=== PATIENT | male | born 1975 | race Caucasian/White ===

== ENCOUNTER 2018-02-19 11:14 | Emergency (ER) | payer OTHER ==
[2018-02-19 11:41] VITALS: BP 138/91
--- NOTE | 2018-02-19 12:44 | ED Physician Documentation ---
PD HPI UPPER EXT INJURY - Stated complaint Stated Complaint: R HAND INJ - Chief complaint Chief Complaint: Trauma Ext - History obtained from History obtained from: Patient - History of Present Illness Location: Right, Hand (dorsum) Type of injury: Crush (hand caught between ladder cleat and building with laceration/gouge in back of hand. Has small area of avulsion that exposes the tendon. Good ROM and extension of the fingers. No numbness.) Where injury occurred: Work Timing - onset: Today Timing - details: Abrupt onset, Still present Worsened by: Palpating. No: Moving Associated symptoms: No: Weakness, Numbness Similar symptoms before: Has not had sx before Recently seen: Not recently seen Review of Systems Skin: reports: Laceration (s) Musculoskeletal: reports: Extremity pain Neurologic: denies: Focal weakness, Numbness PD PAST MEDICAL HISTORY - Past Medical History Past Medical History: Yes Respiratory: Asthma - Past Surgical History Past Surgical History: Yes - Present Medications Home Medications: Ambulatory Orders Medication Instructions Recorded Confirmed No Known Home Medications [No 02/19/18 02/19/18 Known Home Medications] - Allergies Allergies/Adverse Reactions: Allergies Allergy/AdvReac Type Severity Reaction Status Date / Time No Known Drug Allergies Allergy Verified 02/19/18 11:42 - Social History Does the pt smoke?: No Smoking Status: Never smoker Does the pt drink ETOH?: Yes ETOH Use: Beer Does the pt have substance abuse?: Yes Substance Use and Type: Prescription Pills - Immunizations Immunizations are current?: No Immunizations: TDAP >10years/unknown - POLST Patient has POLST: No PD ED PE NORMAL - Vitals Vital signs reviewed: Yes - General General: Alert and oriented X 3, No acute distress, Well developed/nourished - Derm Derm: Normal color, Warm and dry - Extremities Extremities: No deformity, No tenderness to palpate, Other (dorsum right hand with rounded area of avulsion skin about 1 cm rounded. Tendon exposed with minimal fray of it (less than 5% tendon lac). Good ROM against resistance. No FB and no bleeding. No bony tenderness. ) - Neuro Neuro: No motor deficit, No sensory deficit Results - Vitals Vitals: Oxygen O2 Source Room air Procedures - Laceration (location) dorsum right hand Length in cm: 1.2 Wound type: Into subcut fat, Clean, Other (rounded avulsion with irregular edges ) Neurovascular status: Sensory intact, Motor intact Tendon involvement: Tendon Injury (fray of surface of tendon) Anesthesia: Lidocaine 1% with epi Wound Preparation: Irrigated copiously NS, Wound edges modified (cut edges smooth and turned the round into ellipse for closure without "dogears"). No: FB identified Skin layer closure: Nylon, Interrupted, Size #-0 - enter number (4) Other: Patient tolerated well, No complications, Neurovascular intact, Tetanus UTD Complexity: Simple PD MEDICAL DECISION MAKING - ED course Complexity details: considered differential (minimal fray of the tendon, less than 5%. ), d/w patient Departure - Departure Disposition: 01 Home, Self Care Clinical Impression: Laceration of right hand involving tendon Qualifiers: Encounter type: initial encounter Qualified Code(s): S61.411A - Laceration without foreign body of right hand, initial encounter Condition: Stable Record reviewed to determine appropriate education?: Yes Instructions: ED Laceration Hand Follow-Up: Leticia Hadley ARNP [Primary Care Provider] - Comments: It is okay to wash and shower. Clean off the wound twice a day with soap and water, or peroxide and water. Apply some antibiotic ointment to it to keep it moist. Also to watch for signs of infection such as purulence, redness or increasing pain. Return to your primary care or the ER at the specified time for suture removal. Suture removal 9-10 days. There is a small stanley in the tendon of the finger extensor. It is minor enough that he does not need repair or particular splinting but be gentle with the use and particularly jolting type mechanism such as hammering, for a 7-10 days. Tylenol or ibuprofen if needed for pain. Discharge Date/Time: 02/19/18 13:55
[2018-02-19] MEDS ORDERED: IBUPROFEN 600 MG TABLET PO STA (13:35)
== END 2018-02-19 13:55 | disposition home or self-care (01) ==
LOC: ED 11:14
DX: S66.821A Laceration of other specified muscles, fascia and tendons at wrist and hand level, right hand, initial encounter (principal); W23.1XXA Caught, crushed, jammed, or pinched between stationary objects, initial encounter; Y99.0 Civilian activity done for income or pay
CPT/HCPCS: 12001; 99282; 99283; A9270; 1040M